=== PATIENT | female | born 1965 | race African-American/Black ===

== ENCOUNTER 2018-01-17 18:57 | Emergency (ER) | payer OTHER ==
[2018-01-17] MEDS ORDERED: SMZ./TMP. 800/160 MG TABLET ONE (19:29)
--- NOTE | 2018-01-17 19:29 | EDPHYS ---
Physician Documentation [facility] Name: Nani Jones Age: 52 yrs Sex: Female : 1965 Arrival Date: 01/17/2018 Time: 19:04 Bed 5 Private MD: ED Physician Lucio Dailey HPI: 01/17 19:25 This 52 yrs old Black Female presents to ER via Ambulatory with complaints of Foot Pain.jr8 19:25 The patient presents with pain, swelling, tenderness, redness with blister. The jr8 complaints affect the dorsum of right foot. Onset: The symptoms/episode began/occurred acutely, yesterday. Modifying factors: The symptoms are alleviated by nothing. the symptoms are aggravated by nothing. Associated signs and symptoms: The patient has no apparent associated signs or symptoms. Severity of symptoms: At their worst the symptoms were mild, in the emergency department the symptoms are unchanged. The patient has experienced a previous episode. The patient has been recently seen by a physician:. Patient stated that she was seen at [facility] the other day for blister with redness of left foot. Was put on clindamycin. Stated that yesterday noticed another blister but this time on right foot. Now having swelling and erythema . 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 - Social history:: Smoking status: Patient/guardian denies using tobacco. ROS: 19:25 Eyes: Negative for injury, pain, redness, and discharge, ENT: Negative for injury, jr8 pain, and discharge, Neck: Negative for injury, pain, and swelling, Cardiovascular: Negative for chest pain, palpitations, and edema, Respiratory: Negative for shortness of breath, cough, wheezing, and pleuritic chest pain, Abdomen/GI: Negative for abdominal pain, nausea, vomiting, diarrhea, and constipation, Back: Negative for injury and pain, MS/Extremity: Negative for injury and deformity, Neuro: Negative for headache, weakness, numbness, tingling, and seizure. 19:25 Skin: Positive for erythema, swelling, of the right foot. Exam: 19:25 Cardiovascular: Regular rate and rhythm with a normal S1 and S2. No gallops, murmurs, jr8 or rubs. Normal PMI, no JVD. No pulse deficits. Respiratory: Lungs have equal breath sounds bilaterally, clear to auscultation and percussion. No rales, rhonchi or wheezes noted. No increased work of breathing, no retractions or nasal flaring. MS/ Extremity: Pulses equal, no cyanosis. Neurovascular intact. Full, normal range of motion. Neuro: Awake and alert, GCS 15, oriented to person, place, time, and situation. Cranial nerves II-XII grossly intact. Motor strength 5/5 in all extremities. Sensory grossly intact. Cerebellar exam normal. Normal gait. 19:25 Skin: Patient has blister between 4th and 5th digit right foot with erythema noted to dorsum of foot. Mild amount of lymphangitis noted to dorsum of leg. No circumferential erythema noted. . Vital Signs: 19:05 BP 126 / 82; Pulse 63; Resp 19; Temp 97.2; Pulse Ox 96% on R/A; Weight 102.06 kg; la1 Height 5 ft. 4 in. (162.56 cm); 19:05 Body Mass Index 38.62 (102.06 kg, 162.56 cm) la1 MDM: 19:14 Patient medically screened. jr8 19:25 Data reviewed: vital signs, nurses notes, lab test result(s), and as a result, I will jr8 discharge patient. Data interpreted: Pulse oximetry: on room air is 96 %. Interpretation: normal. Counseling: I had a detailed discussion with the patient and/or guardian regarding: the historical points, exam findings, and any diagnostic results supporting the discharge/admit diagnosis, lab results, the need for outpatient follow up, a family practitioner, to return to the emergency department if symptoms worsen or persist or if there are any questions or concerns that arise at home. ED course: strict return precautions given if she starts to run fever or erythema becomes worse. Will add Bactrim to regimen . 01/17 19:24 Order name: Wound Culture jr8 Administered Medications: 19:31 Drug: Bactrim (160 mg-800 mg (DS) 1 tablet Route: PO; bs1 19:38 Follow up: Response: No adverse reaction ak1 Disposition: 22:07 Co-signature as Attending Physician, Lucio Dailey MD. pkl Disposition: 01/17/18 19:28 Discharged to Home. Impression: Cellulitis of right lower limb. - Condition is Stable. - Discharge Instructions: Cellulitis. - Prescriptions for Bactrim DS 800- 160 mg Oral Tablet - take 1 tablet by ORAL route every 12 hours for 10 days; 20 tablet. - Medication Reconciliation Form, Thank You Letter, Antibiotic Education, Prescription Opioid Use form. - Follow up: Private Physician; When: 1 - 2 days; Reason: Recheck today's complaints, Continuance of care, Re-evaluation by your physician. - Problem is new. - Symptoms have improved. Signatures: Dispatcher [employer] EDMS Lucio Dailey MD MD pkVarinder Quezada PA PA jr8 Yifan Sherman RN RN la1 Kya Alcantara RN RN ak1 Angi Woodruff RN RN bs1 Corrections: (The following items were deleted from the chart) 19:53 19:28 01/17/2018 19:28 Discharged to Home. Impression: Cellulitis of right lower limb. ak1 Condition is Stable. Forms are Medication Reconciliation Form, Thank You Letter, Antibiotic Education, Prescription Opioid Use. Follow up: Private Physician; When: 1 - 2 days; Reason: Recheck today's complaints, Continuance of care, Re-evaluation by your physician. Problem is new. Symptoms have improved. jr8
--- NOTE | 2018-01-17 19:29 | ER ---
Nurse's Notes [facility] Name: Nani Jones Age: 52 yrs Sex: Female : 1965 Arrival Date: 01/17/2018 Time: 19:04 Bed 5 Private MD: Diagnosis: Cellulitis of right lower limb Presentation: 01/17 19:04 Presenting complaint: Patient states: I have had pain in my right foot since la1 and I see a blister now. Transition of care: patient was not received from another setting of care. Onset of symptoms was January 17, 2018. Initial Sepsis Screen: Does the patient meet any 2 criteria? No. Patient's initial sepsis screen is negative. Does the patient have a suspected source of infection? No. Patient's initial sepsis screen is negative. Care prior to arrival: None. 19:04 Method Of Arrival: Ambulatory la1 19:04 Acuity: NANO 3 la1 Triage Assessment: 19:30 General: Appears in no apparent distress. Behavior is calm, cooperative. 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 - Social history:: Smoking status: Patient/guardian denies using tobacco. Screenin:29 Abuse screen: Denies threats or abuse. Denies injuries from another. Nutritional ak1 screening: No deficits noted. Tuberculosis screening: No symptoms or risk factors identified. Fall Risk None identified. Assessment: 19:27 General: Appears uncomfortable. Pain: Complains of pain in right foot. Neuro: No ak1 deficits noted. Cardiovascular: No deficits noted. Respiratory: No deficits noted. GI: No signs and/or symptoms were reported involving the gastrointestinal system. : No signs and/or symptoms were reported regarding the genitourinary system. EENT: No signs and/or symptoms were reported regarding the EENT system. Derm: blister, wound to right foot between fourth and fifth toes. ERP cultured and drained blister/wound. Musculoskeletal: No signs and/or symptoms reported regarding the musculoskeletal system. Vital Signs: 19:05 BP 126 / 82; Pulse 63; Resp 19; Temp 97.2; Pulse Ox 96% on R/A; Weight 102.06 kg; la1 Height 5 ft. 4 in. (162.56 cm); 19:05 Body Mass Index 38.62 (102.06 kg, 162.56 cm) la1 ED Course: 19:04 Patient arrived in ED. la1 19:04 Triage completed. la1 19:05 Arm band placed on left wrist. la1 19:14 Varinder Schofield PA is PHCP. jr8 19:14 Lucio Dailey MD is Attending Physician. jr8 19:27 Kya Alcantara, RN is Primary Nurse. ak1 19:29 No provider procedures requiring assistance completed. Patient did not have IV access ak1 during this emergency room visit. 19:30 Patient has correct armband on for positive identification. Bed in low position. Call ak1 light in reach. Side rails up X 1. Pulse ox on. NIBP on. Administered Medications: 19:31 Drug: Bactrim (160 mg-800 mg (DS) 1 tablet Route: PO; bs1 19:38 Follow up: Response: No adverse reaction ak1 Outcome: 19:28 Discharge ordered by . jr8 19:52 Discharged to home via wheelchair, with family. ak1 19:52 Condition: good 19:52 Discharge instructions given to patient, Instructed on discharge instructions, follow up and referral plans. no drinking with medication, no driving heavy equipment, medication usage, Demonstrated understanding of instructions, follow-up care, medications, wound care, Prescriptions given X 1. 19:53 Patient left the ED. ak1 Addendum: 01/22/2018 07:21 Addendum: Culture Results: Positive wound culture. No further action required. Bacteria i w sensitive to prescribed antibiotic. Signatures: Rashmi Alejo, RN VALERIE Varinder Schofield PA PA jr8 Yifan Sherman RN RN la1 Kya Alcantara RN RN ak1 Angi Woodruff RN RN bs1
== END 2018-01-17 19:53 | disposition home or self-care (01) ==
LOC: ER 18:57
DX: L03.115 Cellulitis of right lower limb (principal); I10 Essential (primary) hypertension
CPT/HCPCS: 87070; 87077; 87186; 87205; 99283

== ENCOUNTER 2019-08-20 16:25 | Emergency (ER) | payer OTHER ==
--- OUTSIDE RECORDS SUMMARY | 2019-08-20 16:27 | XMS REPORT ---
:1965 [facility] Address [address] [place] [address] [address] [address] Care Team Providers Name Role Phone Unavailable Unavailable Unavailable Payers Payer Name Policy Type Policy Number Effective Date Expiration Date Problems This patient has no known problems. Allergies, Adverse Reactions, Alerts This patient has no known allergies or adverse reactions. Medications This patient has no known medications.
--- OUTSIDE RECORDS SUMMARY | 2019-08-20 16:28 | XMS REPORT ---
:1965 [facility] Team Providers Name Role Phone Rosa Zepeda Provider Role Unavailable Allergies, Adverse Reactions, Alerts Substance Reaction Event Type N.K.D.A. Info Not Available Non Drug Allergy Problems Problem Type Condition Code Onset Dates Condition Status Assessment Allergic rhinitis, unspecified J30.9 Active seasonality, unspecified trigger Assessment Body mass index (BMI) of 40.0-44.9 Z68.41 Active in adult Assessment Morbid obesity E66.01 Active Assessment Gastroesophageal reflux disease, K21.9 Active esophagitis presence not specified Problem Sinus problem J34.9 Active Assessment Scleroderma M34.9 Active Problem Acid reflux K21.9 Active Assessment On supplemental oxygen therapy Z99.81 Active Problem CHF (congestive heart failure) I50.9 Active Problem Benign essential HTN I10 Active Problem Edema R60.9 Active Problem Swelling of right knee joint M25.461 Active Problem Acute pain of right knee M25.561 Active Assessment Hypertension, unspecified type I10 Active Assessment Pulmonary hypertension I27.0 Active Problem Obesity (BMI 30-39.9) E66.9 Active Assessment Congestive heart failure, I50.9 Active unspecified congestive heart failure chronicity, unspecified congestive heart failure type Problem On supplemental oxygen therapy Z99.81 Active Problem Morbid obesity E66.01 Active Problem Body mass index (BMI) of 40.0-44.9 Z68.41 Active in adult Problem Morbid (severe) obesity due to E66.01 Active excess calories Problem Scleroderma M34.9 Active Problem Gastroesophageal reflux disease, K21.9 Active esophagitis presence not specified Problem Pulmonary hypertension I27.0 Active Problem Hypertension, unspecified type I10 Active Problem Irregular heart beats I49.9 Active Problem Congestive heart failure, I50.9 Active unspecified congestive heart failure chronicity, unspecified congestive heart failure type Problem Pulmonary hypertension I27.20 Active Medications Medication Code Code Instructions Start End Status Dosage System Date Date Carter Osuna [facility] 05040513920 100 MG Orally Active 1 capsule Three times a as needed day Nishantac [facility] 71576009168 150 MG Orally Active 1 tablet Twice a day Spironolactone [facility] 13767134163 50 MG Orally Active 1 tablet twice daily Nasonex [facility] 13736874723 50 MCG/ACT Active 2 sprays Nasally Once a in each day nostril Clarithromycin [facility] 60937338411 500 MG Orally Active 1 tablet every 12 hrs ProAir HFA [facility] 77444618618 108 (90 Base) Active 2 puffs as MCG/ACT needed Inhalation every 6 hrs Multi Complete [facility] 82886819478 - Orally Active not defined Furosemide [facility] 70469580244 20 mg Orally Active 1 tablet Once a day in am Amlodipine [facility] 56179772733 5 MG Orally Active 1 tablet Besylate Once a day Digoxin [facility] 47624257659 125 MCG Orally Active 1 tablet Once a day Iron (Ferrous [facility] 74[address]10 325 MG Orally Active 1 tablet Sulfate) three times daily Atenolol [facility] 62683625085 25 MG Orally Active 1 tablet Once a day Letairis [facility] 54100481147 10 MG Orally Active 1 tablet Once a day Results No Known Results Summary Purpose eClinicalWorks Submission
--- OUTSIDE RECORDS SUMMARY | 2019-08-20 16:28 | XMS REPORT ---
:1965 [facility] Team Providers Name Role Phone Rosa Zepeda Provider Role Unavailable Allergies, Adverse Reactions, Alerts Substance Reaction Event Type N.K.D.A. Info Not Available Non Drug Allergy Problems Problem Type Condition Code Onset Dates Condition Status Assessment URI, acute J06.9 Active Assessment Respiratory symptoms R09.89 Active Problem Pulmonary hypertension I27.0 Active Problem Scleroderma M34.9 Active Problem Gastroesophageal reflux disease, K21.9 Active esophagitis presence not specified Problem Congestive heart failure, I50.9 Active unspecified congestive heart failure chronicity, unspecified congestive heart failure type Problem Pulmonary hypertension I27.20 Active Problem Swelling of right knee joint M25.461 Active Problem Obesity (BMI 30-39.9) E66.9 Active Problem Hypertension, unspecified type I10 Active Problem Family history of diabetes mellitus Z83.3 Active Problem Pain in left hip M25.552 Active Problem Pain in right thigh M79.651 Active Problem Dry mouth R68.2 Active Problem Status post fall Z91.81 Active Problem Acid reflux K21.9 Active Problem Sinus problem J34.9 Active Problem Right hip pain M25.551 Active Problem Irregular heart beats I49.9 Active Problem Pain of left thigh M79.652 Active Problem Pain in right hip M25.551 Active Problem Right thigh pain M79.651 Active Problem Allergic rhinitis, unspecified J30.9 Active seasonality, unspecified trigger Problem Benign essential HTN I10 Active Problem Morbid obesity E66.01 Active Problem CHF (congestive heart failure) I50.9 Active Problem Edema R60.9 Active Problem Body mass index (BMI) of 40.0-44.9 Z68.41 Active in adult Problem Acute pain of right knee M25.561 Active Problem Morbid (severe) obesity due to E66.01 Active excess calories Problem On supplemental oxygen therapy Z99.81 Active Medications Medication Code Code Instructions Start End Date Status Dosage System Date Atenolol [facility] 41438112768 25 MG Orally Active 1 tablet Once a day Multi Complete [facility] 99403223337 - Orally Active not defined Letairis [facility] 52534706419 10 MG Orally Active 1 tablet Once a day Digoxin [facility] 68469680046 125 MCG Orally Active 1 tablet Once a day Clarithromycin [facility] 97789362294 500 MG Orally Active 1 tablet every 12 hrs Amlodipine [facility] 25550025852 5 MG Orally Active 1 tablet Besylate Once a day Spironolactone [facility] 23588623686 50 MG Orally Active 1 tablet twice daily Furosemide [facility] 11356414454 20 mg Orally Active 1 tablet Once a day in am Prednisone [facility] 44345192284 20 mg Orally October Active 1 tablet Once daily 2018 Nasonex [facility] 16476705116 50 MCG/ACT Active 2 sprays Nasally Once a in each day nostril Zantac [facility] 45762581720 150 MG Orally Active 1 tablet Twice a day Tessalon Perles [facility] 37667088275 100 MG Orally Active 1 capsule Three times a as needed day ProAir HFA [facility] 66421995232 108 (90 Base) Active 2 puffs MCG/ACT as needed Inhalation every 6 hrs Iron (Ferrous [facility] [address] 325 MG Orally Active 1 tablet Sulfate) three times daily Results No Known Results Summary Purpose eClinicalWorks Submission
--- OUTSIDE RECORDS SUMMARY | 2019-08-20 16:28 | XMS REPORT ---
:1965 Author Organization [employer] Care Team Providers Name Role Phone Rosa Zepeda Provider Role Unavailable Allergies No Known Allergies Problems Problem Type Condition Code Onset Dates Condition Status Problem Pulmonary hypertension I27.0 Active Problem Scleroderma [...] On supplemental oxygen therapy Z99.81 Active Medications No Known Medications Results No Known Results Summary Purpose eClinicalWorks Submission
--- OUTSIDE RECORDS SUMMARY | 2019-08-20 16:28 | XMS REPORT ---
:1965 Author Organization [employer] Care Team Providers Name Role Phone Duane Rosa Provider Role Unavailable Allergies, Adverse Reactions, Alerts Substance Reaction Event Type N.K.D.A. Info Not Available Non Drug Allergy Problems Problem Type Condition Code Onset Dates Condition Status Assessment Acute bilateral thoracic back pain M54.6 Active Assessment Acute bilateral low back pain M54.5 Active without sciatica Assessment Allergic rhinitis, unspecified J30.9 Active seasonality, unspecified trigger Assessment Cough R05 Active Problem Pulmonary hypertension I27.0 Active Problem [...] unspecified J30.9 Active seasonality, unspecified trigger Assessment Right thigh pain M79.651 Active Problem Benign essential HTN I10 Active Assessment Right hip pain M25.551 Active Problem Morbid obesity E66.01 Active Problem [...] Start End Status Dosage System Date Date Furosemide [facility] 10252787331 20 mg Orally Active 1 tablet Once a day in am Letairis [facility] 91826972424 10 MG Orally Active 1 tablet Once a day Zantac [facility] 67746484788 150 MG Orally Active 1 tablet Twice a day Carter Osuna [facility] 45476280649 100 mg Orally January 14, January 24, Active 1 capsule Three times a 2018 2018 as needed day for cough Digoxin [place] 47359985160 125 MCG Orally Active 1 tablet Once a day Amlodipine [facility] 82986750361 5 MG Orally Active 1 tablet Besylate Once a day Clarithromycin [facility] 74096777868 500 MG Orally Active 1 tablet every 12 hrs Nasonex [facility] 84035618076 50 MCG/ACT Active 2 sprays Nasally Once a in each day nostril Multi Complete [facility] 92490143155 - Orally Active not defined ProAir HFA [facility] 38302828254 108 (90 Base) Active 2 puffs as MCG/ACT needed Inhalation every 4-6 hrs Iron (Ferrous [facility] [address] 325 MG Orally Active 1 tablet Sulfate) three times daily Atenolol [facility] 98532645587 25 MG Orally Active 1 tablet Once a day Spironolactone [facility] 33970176116 50 MG Orally Active 1 tablet twice daily Fluticasone [facility] 44481037760 50 MCG/ACT January 14, Active 2 sprays Propionate Nasally Once a 2018 in each day nostril Carter Osuna [facility] 52915025986 100 MG Orally Active 1 capsule Three times a as needed day Results No Known Results Summary Purpose eClinicalWorks Submission
--- OUTSIDE RECORDS SUMMARY | 2019-08-20 16:28 | XMS REPORT ---
:1965 [facility] Team Providers Name Role Phone Rosa Zepeda Provider Role Unavailable Allergies, Adverse Reactions, Alerts Substance Reaction Event Type N.K.D.A. Info Not Available Non Drug Allergy Problems Problem Type Condition Code Onset Dates Condition Status Assessment Congestive heart failure, I50.9 Active unspecified congestive heart failure chronicity, unspecified congestive heart failure type Assessment On supplemental oxygen therapy Z99.81 Active Assessment Hypertension, unspecified type I10 Active Assessment Pulmonary hypertension I27.20 Active Problem Pulmonary hypertension I27.0 Active Problem [...] K21.9 Active Problem Sinus problem J34.9 Active Assessment Pain in right hip M25.551 Active Problem Right hip pain M25.551 Active Problem Irregular heart beats I49.9 Active Assessment Pain of left thigh M79.652 Active Problem Pain of left thigh M79.652 Active Assessment Pain in right thigh M79.651 Active Problem Pain in right hip M25.551 Active Assessment Allergic rhinitis, unspecified J30.9 Active seasonality, unspecified trigger Problem Right thigh pain M79.651 Active Problem Allergic rhinitis, unspecified J30.9 Active seasonality, unspecified trigger Assessment Scleroderma M34.9 Active Problem Benign essential HTN I10 Active Assessment Morbid obesity E66.01 Active Problem Morbid obesity E66.01 Active Assessment Diabetes mellitus screening Z13.1 Active Problem CHF (congestive heart failure) I50.9 Active Assessment Family history of diabetes mellitus Z83.3 Active Problem Edema R60.9 Active Assessment Pain in left hip M25.552 Active Problem Body mass index (BMI) of 40.0-44.9 Z68.41 Active in adult Assessment Gastroesophageal reflux disease, K21.9 Active esophagitis presence not specified Problem Acute pain of right knee M25.561 Active Problem Morbid (severe) obesity due to E66.01 Active excess calories Problem On supplemental oxygen therapy Z99.81 Active Medications Medication Code Code Instructions Start End Status Dosage System Date Date Furosemide [facility] 36074680637 20 mg Orally Active 1 tablet Once a day in am Nasonex [facility] 58218560636 50 MCG/ACT Active 2 sprays Nasally Once a in each day nostril Iron (Ferrous [facility] [address] 325 MG Orally Active 1 tablet Sulfate) three times daily Multi Complete [facility] 68967240795 - Orally Active not defined Spironolactone [facility] 33951258272 50 MG Orally Active 1 tablet twice daily ProAir HFA [facility] 88991597313 108 (90 Base) Active 2 puffs as MCG/ACT needed Inhalation every 6 hrs Letairis [facility] 44255923148 10 MG Orally Active 1 tablet Once a day Clarithromycin [facility] 69085415449 500 MG Orally Active 1 tablet every 12 hrs Tessalon Perles [facility] 06031344086 100 MG Orally Active 1 capsule Three times a as needed day Zantac [facility] 31774998222 150 MG Orally Active 1 tablet Twice a day Digoxin [facility] 16872556347 125 MCG Orally Active 1 tablet Once a day Amlodipine [facility] 55464935017 5 MG Orally Active 1 tablet Besylate Once a day Atenolol [facility] 70915116198 25 MG Orally Active 1 tablet Once a day Results No Known Results Summary Purpose eClinicalWorks Submission
--- OUTSIDE RECORDS SUMMARY | 2019-08-20 16:28 | XMS REPORT ---
:1965 Author Organization [employer]Clinical[employer] Care Team Providers Name Role Phone Rosa Zepeda Provider Role Unavailable Allergies No Known Allergies Problems Problem Type Condition Code Onset Dates Condition Status Problem CHF (congestive heart failure) I50.9 Active Problem Benign essential HTN I10 Active Problem Edema R60.9 Active Problem Swelling of right knee joint M25.461 Active Problem Acute pain of right knee M25.561 Active Problem Obesity (BMI 30-39.9) E66.9 Active Problem On supplemental oxygen therapy Z99.81 Active [...] chronicity, unspecified congestive heart failure type Problem Sinus problem J34.9 Active Problem Pulmonary hypertension I27.20 Active Problem Acid reflux K21.9 Active Medications No Known Medications Results No Known Results Summary Purpose [email or web address] Submission
--- OUTSIDE RECORDS SUMMARY | 2019-08-20 16:28 | XMS REPORT | Summary of Care ---
:1965 Author Organization [facility] Address [address] [place] [address] Care Team Providers Name Role Phone Rosa Zepeda Primary Care Provider Reason for Visit Reason Comments Follow-up sleep study completed, results Encounter Details Date Type Department Care Team Description 04/28/2019 Office Visit [facility] ADC Yesenia Mcgill DO YESENIA (obstructive sleep apnea) (Primary Dx); Pulmonary Clinic [facility] Pulmonary hypertension; [address] [place] [address] , [facility] Scleroderma [address] [place] [phone] Allergies No Known Allergiesdocumented as of this encounter (statuses as of 04/28/2019) Medications Medication Sig Dispensed Refills Start Date End Date Status dabigatran etexilate 150 Take 150 mg by 0 Active mg capsule mouth 2 (two) times daily. amLODIPine 5 mg tablet Take 5 mg by 0 Active mouth daily. digoxin 125 mcg tablet Take 125 mcg by 0 Active mouth daily. spironolactone 50 mg Take 50 mg by 0 Active tablet mouth daily. ambrisentan 10 mg tablet Take 10 mg by 0 Active mouth daily. atenolol 25 mg tablet Take 25 mg by 0 Active mouth daily. sildenafil 20 mg tablet Take by mouth. 0 Active documented as of this encounter (statuses as of 04/28/2019) Active Problems Problem Noted Date Obesity (BMI 30-39.9) 03/22/2017 documented as of this encounter (statuses as of 04/28/2019) Social History Tobacco Use Types Packs/Day Years Used Date Never Smoker Smokeless Tobacco: Never Used Sex Assigned at Date Recorded Not on file Job Start Date Occupation Industry Not on file Not on file Not on file Travel History Travel Start Travel End No recent travel history available. documented as of this encounter Last Filed Vital Signs Vital Sign Reading Time Taken Comments Blood Pressure 119/82 04/28/2019 10:45 AM CDT Pulse 66 04/28/2019 10:45 AM CDT Temperature - - Respiratory Rate - - Oxygen Saturation 99% 04/28/2019 10:45 AM CDT Inhaled Oxygen Concentration - - Weight 100.7 kg (222 lb) 04/28/2019 10:45 AM CDT Height 162.6 cm (5' 4") 04/28/2019 10:45 AM CDT Body Mass Index 38.11 04/28/2019 10:45 AM CDT documented in this encounter Progress Notes Yesenia Mcgill, - 04/28/2019 10:30 AM CDT [facility] Inter[facility] Chief Complaint: Pulmonary hypertension / sleep apnea History of Present Illness: Nani Jones is a 53 year old female with diagnosis of pulmonary hypertension diagnosed for a while now, had cardiac catheterization at [facility]. Started on Letaris and Revatio. Has been on these for a while now. Hx of scleroderma. Since last visit had sleep study done. Other symptoms are stable including shortness of breath withexertion including going up stairs. With regards to sleep apnea, in the past was on CPAP but issue was nose bleeds. Past Medical History: has a past medical history of Anemia, CHF (congestive heart failure), Hypertension, Irregular heart beat, Pulmonary HTN, Raynaud's disease, and Scleroderma. Past Surgical History: has a past surgical history that includes uterine fibroid embolization. Family History: family history includes Cancer in her mother; Hypertension in her father. Social History: reports that she has never smoked. She has never used smokeless tobacco. Review of Systems: General: (-) fever, (-) chills, (-) weight loss, (-) weight gain, (-) fatigue, ( -) malaise Skin: (-) rash, (-) lesion HEENT: (-) headache, (-) change in hearing, (-) change in vision, (-) nasal discharge, (-) sore throat Neck: (-) pain, (-) difficulty swallowing, (-) mass Heme: (-) bleeding disorder Resp: (+) cough, (+) dyspnea on exertion Cardio: (-) chest pain, (-) palpitations, (-) syncope GI: (-) abdominal pain, (-) nausea, (-) vomiting, (-) diarrhea, (-) constipation , (-) melena, (-) hematochezia, (-) hematemesis : (-) dysuria, (-) hematuria Endo: (-) heat intolerance, (-) cold intolerance Neuro: (-) numbness, (-) tingling, (-) weakness Back: (-) pain, (-)spasms MAYRA: (-) muscle pain, (-) joint pain, (-) claudication Psych: (-) anxiety, (-) depression, (-) psychiatric disorder Objective: BP 119/82 (BP Location: Left arm, Patient Position: Sitting, BP CUFF SIZE: Adult Large) | Pulse 66| Ht 5' 4" (1.626 m) | Wt 222 lb (100.7 kg) | SpO2 99 % | BMI 38.11 kg/m General: Alert, in no acute distress Psych: Oriented to person, place, time, and situation Head: Normocephalic, atraumatic Eyes: Conjunctiva clear, extraocular motion intact Mouth: Mucus membranes moist Neck: Supple, trachea midline, no masses Heart: Regular rate and rhythm, no murmurs, rubs, or gallops Lungs: Clear to auscultation bilaterally Abdomen: Soft, non-distended, non-tender to palpation, no masses or organomegaly Ext: Trace lower extremity edema Msk: No clubbing noted Neuro: Normal gait, no focal deficits noted Lymph: No cervical or supraclavicular lymphadenopathy Labs/Studies: Echocardiogram: EF > 55%, RV moderately dilated, RV systolic function normal. LA severely dilated. RA severely dilated. Dilated IVC suggests increased RA pressure. Moderate MR. Moderate to sever TR.RVSP > 60 mmHg. No pericardial effusion. NO pleural effusion Sleep study AHI 14.9 Assessment: ICD-10-CM ICD-9-CM 1. YESENIA (obstructive sleep apnea) G47.33 327.23 2. Pulmonary hypertension I27.20 416.8 3. Scleroderma M34.9 710.1 Pulmonary hypertension is likely multifactorial - Group I PH (PAH) from scleroderma, and Group II (pulmonary venous hypertension) from diastolic heart failure based on severely enlarged LA size, group III from sleep apnea and possibly from scleroderma lung disease Plan: Start auto PAP 5 to 15 cm H20 Continuing Revatio and Letaris for now Check six minute walk and PFT Continue with diuresis Recheck echo about 3-4 months after starting CPAP therapy Based on those echo results and clinical status will determine whether repeat RHC is necessary documented in this encounter Plan of Treatment Date Type Specialty Care Team Description 06/16/2019 Office Visit Pulmonary Disease Yesenia Mcgill DO [address] [place] [address] Health Maintenance Due Date Last Done Comments PNEUMOCOCCAL 0-64 YEARS COMBINED SERIES (1 of 1 - 1972 PPSV23) DTaP,Tdap,and Td Vaccines (1 - Tdap) 1985 PAP SMEAR 1987 MAMMOGRAM 2006 COLONOSCOPY 2016 Zoster Recombinant Vaccine (SHINGRIX) (1 of 2) 2016 INFLUENZA VACCINE (#1) 2019 documented as of this encounter Results Not on filedocumented in this encounter Visit Diagnoses Diagnosis YESENIA (obstructive sleep apnea) - Primary Obstructive sleep apnea (adult) (pediatric) Pulmonary hypertension Other chronic pulmonary heart diseases Scleroderma Systemic sclerosis documented in this encounter Insurance Payer Benefit Plan / Subscriber ID Effective Phone Address Type Group Dates [employer] xxxxxxxxx [address] [place] [address] [place] [address] (Work) [id number] documented as of this encounter
--- OUTSIDE RECORDS SUMMARY | 2019-08-20 16:28 | XMS REPORT ---
:1965 Author Organization [employer] Care Team Providers Name Role Phone Rosa Zepeda Provider Role Unavailable Allergies No Known Allergies Problems Problem Type Condition Code Onset Dates Condition Status Problem Body mass index (BMI) of 40.0-44.9 Z68.41 Active in adult Problem Obesity (BMI 30-39.9) E66.9 Active Problem Morbid obesity E66.01 Active Problem Dry mouth R68.2 Active Problem Congestive heart failure, I50.9 Active unspecified congestive heart failure chronicity, unspecified congestive heart failure type Problem Status post fall Z91.81 Active Problem Gastroesophageal reflux disease, K21.9 Active esophagitis presence not specified Problem Hypertension, unspecified type I10 Active Problem Right hip pain M25.551 Active Problem Swelling of right knee joint M25.461 Active Problem Acute pain of right knee M25.561 Active Problem Right thigh pain M79.651 Active Problem Allergic rhinitis, unspecified J30.9 Active seasonality, unspecified trigger Problem Acid reflux K21.9 Active Problem CHF (congestive heart failure) I50.9 Active Problem Pulmonary hypertension I27.0 Active Problem Scleroderma M34.9 Active Problem Irregular heart beats I49.9 Active Problem Sinus problem J34.9 Active Problem Edema R60.9 Active Problem On supplemental oxygen therapy Z99.81 Active Problem Pulmonary hypertension I27.20 Active Problem Benign essential HTN I10 Active Problem Morbid (severe) obesity due to E66.01 Active excess calories Medications No Known Medications Results No Known Results Summary Purpose [employer] Submission
--- OUTSIDE RECORDS SUMMARY | 2019-08-20 16:29 | XMS REPORT | Summary of Care ---
:1965 Author Organization [facility] Address [address] [place] [address] Care Team Providers Name Role Phone Rosa Zepeda Primary Care Provider Encounter Details Date Type Department Care Team Description 04/28/2019 Orders Only [facility] Doctor Unassigned, No [address] [facility] Name [place] [id number] [address] [place] [address] Allergies No Known Allergiesdocumented as of this [...] of this encounter Last Filed Vital Signs Not on filedocumented in this encounter Plan of Treatment Date Type Specialty Care Team Description 06/16/2019 Office Visit Pulmonary Disease Yesenia Mcgill, [address] [place] [address] Health Maintenance Due Date Last Done Comments PNEUMOCOCCAL 0-64 YEARS COMBINED SERIES (1 of 1 - 1972 PPSV23) DTaP,Tdap,and Td Vaccines (1 - Tdap) 1985 PAP SMEAR 1987 MAMMOGRAM 2006 COLONOSCOPY 2016 Zoster Recombinant Vaccine (SHINGRIX) (1 of 2) 2016 INFLUENZA VACCINE (#1) 2019 documented as of this encounter Procedures Procedure Name Priority Date/Time Associated Diagnosis Comments DME/SUPPLY JUSTIFICATION Routine 04/28/2019 12:01 AM CDT documented in this encounter Results Not on filedocumented in this encounter Insurance Payer Benefit Plan / Subscriber ID Effective Phone Address Type Group Dates [employer] xxxxxxxxx [address] [place] [id number] [place] [address] documented as of this encounter
--- NOTE | 2019-08-20 18:59 | ER ---
Nurse's Notes [facility] Name: Nani Jones Age: 53 yrs Sex: Female : 1965 Arrival Date: 08/20/2019 Time: 16:26 Bed 15 Private MD: Diagnosis: Onychomycosis Presentation: 08/20 16:38 Presenting complaint: Patient states: "I have Raynaud's, but it looks like my finger aj1 has gotten infected and it's painful to touch" Reports pain to right index finger. Denies injury to right index finger. Transition of care: patient was not received from another setting of care. Onset of symptoms was 2018. Risk Assessment: Do you want to hurt yourself or someone else?. Initial Sepsis Screen: Does the patient meet any 2 criteria? No. Patient's initial sepsis screen is negative. Does the patient have a suspected source of infection? Yes: Skin breakdown/wound. Care prior to arrival: None. 16:38 Method Of Arrival: Ambulatory [facility] 16:38 Acuity: NANO 4 aj1 Triage Assessment: 16:42 General: Appears in no apparent distress. comfortable, Behavior is calm, cooperative, aj1 appropriate for age. Pain: Complains of pain in right hand Pain currently is 8 out of 10 on a pain scale. Neuro: Level of Consciousness is awake, alert, obeys commands. Cardiovascular: Patient's skin is warm and dry. Respiratory: Airway is patent Respiratory effort is even, unlabored, Respiratory pattern is regular, symmetrical. Musculoskeletal: Range of motion: limited in DIP of right index finger and PIP of right index finger. Injury Description: Denies recent injury to finger. 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 - Social history:: Smoking status: Patient/guardian denies using tobacco. - Ebola Screening: : Patient denies travel to an Ebola-affected area in the 21 days before illness onset. Screenin:08 Abuse screen: Denies threats or abuse. Denies injuries from another. Nutritional rv screening: No deficits noted. Tuberculosis screening: No symptoms or risk factors identified. Fall Risk None identified. Assessment: 18:30 General: Appears in no apparent distress. rv 18:30 Pain: Complains of pain in right hand. Neuro: Level of Consciousness is awake, alert, rv obeys commands, Oriented to person, place, time, situation. Cardiovascular: Patient's skin is warm and dry. Respiratory: Airway is patent. Derm: Wound noted right hand. Musculoskeletal: Swelling absent Reports pain in right hand. Vital Signs: 16:42 BP 133 / 79; Pulse 65; Resp 18; Temp 99.4; Pulse Ox 100% on R/A; Weight 104.33 kg (R); aj1 Height 5 ft. 4 in. (162.56 cm) (R); 16:42 Body Mass Index 39.48 (104.33 kg, 162.56 cm) aj1 ED Course: 16:26 Patient arrived in ED. rg4 16:39 Triage completed. aj1 18:13 José Luis Corado RN is Primary Nurse. rv 18:17 Marlon Moeller NP is PHCP. pm1 18:17 Justin Hunt MD is Attending Physician. pm1 19:08 Patient has correct armband on for positive identification. Call light in reach. Side rv rails up X 1. Pulse ox on. NIBP on. 19:08 Patient placed in the treatment room, in a wheelchair, Patient notified of wait time. rv 19:08 No provider procedures requiring assistance completed. Patient did not have IV access rv during this emergency room visit. Administered Medications: No medications were administered Outcome: 18:59 Discharge ordered by . pm1 19:09 Discharged to home ambulatory. rv 19:09 Condition: good 19:09 Discharge instructions given to patient, Instructed on discharge instructions, follow up and referral plans. Demonstrated understanding of instructions, follow-up care. 19:09 Patient left the ED. rv Signatures: Gail Jefferson RN RN aj1 Marlon Moeller NP KILN CAR REPAIRER pm1 Joan Alfred rg4 José Luis Corado, RN RN rv
--- NOTE | 2019-08-20 18:59 | EDPHYS ---
Physician Documentation [facility] Name: Nani Jones Age: 53 yrs Sex: Female : 1965 Arrival Date: 08/20/2019 Time: 16:26 Bed 15 Private MD: ED Physician Justin Hunt HPI: 08/20 18:57 This 53 yrs old Black Female presents to ER via Ambulatory with complaints of Finger pm1 Injury. 18:57 The patient or guardian reports pain, abnormal nail growth to right 2nd finger for the pm1 past 1 month. Context: resulted from an unknown cause. Onset: The symptoms/episode began/occurred 1 month(s) ago. Modifying factors: The symptoms are alleviated by nothing, the symptoms are aggravated by nothing. Associated signs and symptoms: Pertinent negatives: cyanosis distally, decreased sensation distally, numbness distally, tingling distally. Severity of symptoms: in the emergency department the symptoms are actually worse. The patient has not experienced similar symptoms in the past. 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 - Social history:: Smoking status: Patient/guardian denies using tobacco. - Ebola Screening: : Patient denies travel to an Ebola-affected area in the 21 days before illness onset. ROS: 18:57 Constitutional: Negative for fever, chills, and weight loss, Cardiovascular: Negative pm1 for chest pain, palpitations, and edema, Respiratory: Negative for shortness of breath, cough, wheezing, and pleuritic chest pain, Abdomen/GI: Negative for abdominal pain, nausea, vomiting, diarrhea, and constipation, Back: Negative for injury and pain. 18:57 Neuro: Negative for headache, weakness, numbness, tingling, and seizure. 18:57 MS/extremity: Positive for pain, of the Right index finger tip, Negative for decreased range of motion, deformity. 18:57 Skin: Positive for abnormal nail growth to right index finger. Exam: 18:57 Constitutional: This is a well developed, well nourished patient who is awake, alert, pm1 and in no acute distress. Head/Face: Normocephalic, atraumatic. Chest/axilla: Normal chest wall appearance and motion. Nontender with no deformity. No lesions are appreciated. Cardiovascular: Regular rate and rhythm with a normal S1 and S2. No gallops, murmurs, or rubs. Normal PMI, no JVD. No pulse deficits. Respiratory: Lungs have equal breath sounds bilaterally, clear to auscultation and percussion. No rales, rhonchi or wheezes noted. No increased work of breathing, no retractions or nasal flaring. 18:57 Abdomen/GI: Soft, non-tender, with normal bowel sounds. No distension or tympany. No guarding or rebound. No evidence of tenderness throughout. Back: No spinal tenderness. No costovertebral tenderness. Full range of motion. Skin: Warm, dry with normal turgor. Normal color with no rashes, no lesions, and no evidence of cellulitis. 18:57 Musculoskeletal/extremity: 18:57 Musculoskeletal/extremity: Extremities: all appear grossly normal, with no appreciated pain with palpation. 18:57 Skin: Appearance: normal except for affected area, right index finger nail with yellowing and thickening. Vital Signs: 16:42 BP 133 / 79; Pulse 65; Resp 18; Temp 99.4; Pulse Ox 100% on R/A; Weight 104.33 kg (R); aj1 Height 5 ft. 4 in. (162.56 cm) (R); 16:42 Body Mass Index 39.48 (104.33 kg, 162.56 cm) aj1 MDM: 18:35 Patient medically screened. pm1 18:53 Data reviewed: vital signs. Data interpreted: Pulse oximetry: on room air is 100 %. pm1 Interpretation: normal. 18:57 Counseling: I had a detailed discussion with the patient and/or guardian regarding: the pm1 historical points, exam findings, and any diagnostic results supporting the discharge/admit diagnosis, the need for outpatient follow up, for definitive care, a grain inspector, to return to the emergency department if symptoms worsen or persist or if there are any questions or concerns that arise at home. Administered Medications: No medications were administered Disposition: 08/20/19 18:59 Discharged to Home. Impression: Onychomycosis. - Condition is Stable. - Discharge Instructions: Fungal Nail Infection. - Medication Reconciliation Form, Thank You Letter, Antibiotic Education, Prescription Opioid Use form. - Follow up: Emergency Department; When: As needed; Reason: Worsening of condition. Follow up: Private Physician; When: 2 - 3 days; Reason: Recheck today's complaints, Continuance of care, Re-evaluation by your physician. - Problem is new. - Symptoms have improved. Addendum: 08/22/2019 15:16 Co-signature as Attending Physician, Justin Hunt MD. m a2 Signatures: Gail Jefferson, RN RN aj1 Marlon Moeller, TELEVISION CAMERAMAN TELEVISION CAMERAMAN pm1 Justin Hunt MD MD ma2 José Luis Corado RN RN rv Corrections: (The following items were deleted from the chart) 08/20 19:09 18:59 08/20/2019 18:59 Discharged to Home. Impression: Onychomycosis. Condition is rv Stable. Forms are Medication Reconciliation Form, Thank You Letter, Antibiotic Education, Prescription Opioid Use. Follow up: Emergency Department; When: As needed; Reason: Worsening of condition. Follow up: Private Physician; When: 2 - 3 days; Reason: Recheck today's complaints, Continuance of care, Re-evaluation by your physician. Problem is new. Symptoms have improved. pm1
[2019-08-20 20:44] VITALS: BP 133/79; TEMP 99.4; O2SAT 100
--- NOTE | 2019-08-22 20:51 | EKG ---
Test Date: 2019-08-20 Test Time: 16:50:58 Insurance Business Analyst: KRISTI MEASUREMENT RESULTS: Intervals: Rate: 62 [place]: QRSD: 84 QT: 420 QTc: 426 [place]: P: [place]: QRS: 59 T: -19 INTERPRETIVE STATEMENTS: Atrial fibrillation Nonspecific ST abnormality Abnormal QRS-T angle, consider primary T wave abnormality Abnormal ECG No previous ECG available for comparison Electronically Signed On 08-22-19 20:47:07 WOOD GETTER by Agustín Ames
== END 2019-08-20 19:09 | disposition home or self-care (01) ==
LOC: ER 16:25
DX: B35.1 Tinea unguium (principal)
CPT/HCPCS: 93005; 99283